=== PATIENT | male | born 1995 | race Caucasian/White ===

== ENCOUNTER 2016-11-11 23:42 | Emergency (ER) | payer OTHER ==
[~2016-11-11] VITALS: Ht 185.4 cm; Wt 63.5 kg
[~2016-11-11 23:42] MED LIST: ALBUTEROL SULF8.5 GM INH; DOXYCYCLINE HY100 MG PO; IBUPROFEN600 MG PO; NORCO 5-325 TA1 EACH PO
== END 2016-11-12 02:10 | disposition home or self-care (01) ==
LOC: ED 23:42
DX: G25.3 Myoclonus (principal)
CPT/HCPCS: 36415; 70450; 80053; 81001; 83735; 85025; 99284